=== PATIENT | male | born 1995 | race Caucasian/White ===

== ENCOUNTER 2017-10-24 01:50 | Emergency (ER) | payer BC, OTHER ==
[~2017-10-24] VITALS: Ht 182.9 cm; Wt 68.0 kg
[~2017-10-24 01:50] MED LIST: ANTIDEPRESSANT
[2017-10-24 02:15] LABS: BASOPHILS # (AUTO) 0.1 10^3/uL (0.0-0.1); BASOPHILS % (AUTO) 1 % (0-10); EOSINOPHILS # (AUTO) 0.1 10^3/uL (0.0-0.3); EOSINOPHILS % (AUTO) 2 % (0-10); LYMPHOCYTES # (AUTO) 3.2 X 10^3 (1.0-4.0); LYMPHOCYTES % (AUTO) 43 % (12-44); MEAN CORPUSCULAR HEMOGLOBIN 30 PG (25-34); MEAN CORPUSCULAR HGB CONC 35 G/DL (32-36); MEAN CORPUSCULAR VOLUME 85 FL (80-99); MONOCYTES # (AUTO) 0.5 X 10^3 (0.0-1.0); MONOCYTES % (AUTO) 7 % (0-12); NEUTROPHILS # (AUTO) 3.5 X 10^3 (1.8-7.8); NEUTROPHILS % (AUTO) 47 % (42-75); PLATELET COUNT 269 10^3/uL (130-400); RED BLOOD COUNT 4.85 10^6/uL (4.35-5.85); RED CELL DISTRIBUTION WIDTH 12.1 % (10.0-14.5); WHITE BLOOD COUNT 7.3 10^3/uL (4.3-11.0)
[2017-10-24 02:37] LABS: BILIRUBIN,URINE NEGATIVE (NEGATIVE); KETONES,URINE NEGATIVE (NEGATIVE); LEUKOCYTE ESTERASE ,URINE NEGATIVE (NEGATIVE); NITRITE,URINE NEGATIVE (NEGATIVE); PH,URINE 7 (5-9); PROTEIN,URINE NEGATIVE (NEGATIVE); UROBILINOGEN,URINE NORMAL (NORMAL)
[2017-10-24 02:43] LABS: ALANINE AMINOTRANSFERASE 17 U/L (0-55); ALBUMIN 4.4 GM/DL (3.2-4.5); ALCOHOL 254 MG/DL (<10); ANION GAP 16 MMOL/L (5-14); ASPARTATE AMINO TRANSFERASE 20 U/L (5-34); BILIRUBIN,TOTAL 0.3 MG/DL (0.1-1.0); BLOOD UREA NITROGEN 11 MG/DL (7-18); BUN/CREATININE RATIO 11; CALCIUM 9.7 MG/DL (8.5-10.1); CARBON DIOXIDE 17 MMOL/L (21-32); CHLORIDE 110 MMOL/L (98-107); CREATININE SERUM 1.03 MG/DL (0.60-1.30); GFR ESTIMATED > 60; GLUCOSE 122 MG/DL (70-105); POTASSIUM 3.6 MMOL/L (3.6-5.0); SALICYLATE < 5.0 MG/DL (5.0-20.0); SODIUM 143 MMOL/L (135-145); TOTAL PROTEIN 7.7 GM/DL (6.4-8.2)
[2017-10-24 02:45] LABS: ACETAMINOPHEN < 10 UG/ML (10-30)
--- NOTE | 2017-10-24 03:27 | ED Psychosocial ---
General Chief Complaint: Substance Abuse Stated Complaint: ETOH Nursing Triage Note: PT TO ED 8 PER EMS FOR C/O POSS OD ET ETOH INTOXICATION. PT SCREAMING, CRYING, HYSTERICAL AT THIS TIME. PT DEMANDING THAT IV BE PULLED OUT AND WANTS REASSURANCE HIS PARENTS ARE OK. Source: patient, EMS Exam Limitations: intoxication History of Present Illness Time seen by provider: 01:55 Initial Comments Here by EMS with report of alcohol intoxication. Apparently somebody called because he is being irrational and crying. EMS reports that he was asking about his parents and being irrational and crying. No report of injury. 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 On arrival, he is irritable but calmed with verbal measures. Admits to drinking alcohol but otherwise doesn't admit to much else. Mother arrives much later and does report that he left a goodbye note on Facebook which the patient doesn' t remember. Denies suicidal or homicidal ideations. Timing/Duration: this evening Severity: moderate Associated Symptoms: anxiety, ingestion (alcohol) Allergies and Home Medications Allergies Coded Allergies: amoxicillin (Unverified Allergy, Unknown, 10/05/17) sulfamethoxazole (Unverified Allergy, Unknown, 10/05/17) trimethoprim (Unverified Allergy, Unknown, 10/05/17) Home Medications [Antidepressant] , (Reported) Constitutional: see HPI, No chills, No fever EENTM: no symptoms reported Respiratory: no symptoms reported Cardiovascular: no symptoms reported Gastrointestinal: no symptoms reported Genitourinary: no symptoms reported Musculoskeletal: no symptoms reported Skin: see HPI, other (multiple old superficial lacerations to the arms and legs.) Psychiatric/Neurological: See HPI, Anxiety Past Lriasla-Ydmizh-Cbvntm Hx Patient Social History Alcohol Use: Denies Use Recreational Drug Use: No Smoking Status: Never a Smoker 2nd Hand Smoke Exposure: No Recent Foreign Travel: No Contact w/Someone Who Travel: No Recent Infectious Disease Expo: No Recent Hopitalizations: No Physical Abuse: No Sexual Abuse: No Mistreated: No Fear: No Immunizations Up To Date Tetanus Booster (TDap): Less than 5yrs Seasonal Allergies Seasonal Allergies: No Surgeries History of Surgeries: Yes (ORAL) Respiratory History of Respiratory Disorde: No Cardiovascular History of Cardiac Disorders: No Neurological History of Neurological Disord: No Reproductive System Hx Reproductive Disorders: No Genitourinary History of Genitourinary Disor: No Gastrointestinal History of Gastrointestinal Di: No Musculoskeletal History of Musculoskeletal Dis: No Endocrine History of Endocrine Disorders: No HEENT History of HEENT Disorders: No Cancer History of Cancer: No Psychosocial History of Psychiatric Problem: Yes Behavioral Health Disorders: Suicide Attempts Suicide Risk Score: 0 Reviewed Nursing Assessment Reviewed/Agree w Nursing PMH: Yes Physical Exam Vital Signs Vital Sign - Last 12Hours 10/24/17 01:50 Temp 96.6 Pulse 144 Resp 24 B/P (MAP) 123/100 (108) Pulse Ox 100 O2 Delivery Room Air Capillary Refill : Less Than 3 Seconds General Appearance: WD/WN, no apparent distress HEENT: PERRL/EOMI, pharynx normal Neck: full range of motion, supple Respiratory: lungs clear, normal breath sounds Cardiovascular: regular rate, rhythm, no murmur Peripheral Pulses: 2+ Dorsalis Pedis (R), 2+ Left Dors-Pedis (L), 2+ Radial Pulses (R), 2+ Radial Pulses (L) Gastrointestinal: non tender, soft Extremities: non-tender, normal inspection Neurologic/Psychiatric: alert, other (slurred speech) Appearance/Memory: no memory impairment, disheveled Behavior/Eye Contact: uncooperative, other (crying) Thoughts/Hallucinations: no apparent hallucination Skin: normal color, warm/dry, other (multiple superficial lacerations on the upper and lower extremities in various stages of healing but all appear old and certainly no new actively bleeding wounds.) Laceration Repair : Suture Size: 4-0 Progress/Results/Core Measures Results/Orders Lab Results Laboratory Tests Test 10/24/17 01:59 10/24/17 02:29 Range/Units White Blood Count 7.3 4.3-11.0 10^3/uL Red Blood Count 4.85 4.35-5.85 10^6/uL Hemoglobin 14.4 13.3-17.7 G/DL Hematocrit 41 40-54 % Mean Corpuscular Volume 85 80-99 FL Mean Corpuscular Hemoglobin 30 25-34 PG Mean Corpuscular Hemoglobin Concent 35 32-36 G/DL Red Cell Distribution Width 12.1 10.0-14.5 % Platelet Count 269 130-400 10^3/uL Mean Platelet Volume 10.0 7.4-10.4 FL Neutrophils (%) (Auto) 47 42-75 % Lymphocytes (%) (Auto) 43 12-44 % Monocytes (%) (Auto) 7 0-12 % Eosinophils (%) (Auto) 2 0-10 % Basophils (%) (Auto) 1 0-10 % Neutrophils # (Auto) 3.5 1.8-7.8 X 10^3 Lymphocytes # (Auto) 3.2 1.0-4.0 X 10^3 Monocytes # (Auto) 0.5 0.0-1.0 X 10^3 Eosinophils # (Auto) 0.1 0.0-0.3 10^3/uL Basophils # (Auto) 0.1 0.0-0.1 10^3/uL Sodium Level 143 135-145 MMOL/L Potassium Level 3.6 3.6-5.0 MMOL/L Chloride Level 110 H 98-107 MMOL/L Carbon Dioxide Level 17 L 21-32 MMOL/L Anion Gap 16 H 5-14 MMOL/L Blood Urea Nitrogen 11 7-18 MG/DL Creatinine 1.03 0.60-1.30 MG/DL Estimat Glomerular Filtration Rate > 60 BUN/Creatinine Ratio 11 Glucose Level 122 H 70-105 MG/DL Calcium Level 9.7 8.5-10.1 MG/DL Total Bilirubin 0.3 0.1-1.0 MG/DL Aspartate Amino Transf (AST/SGOT) 20 5-34 U/L Alanine Aminotransferase (ALT/SGPT) 17 0-55 U/L Alkaline Phosphatase 97 40-136 U/L Total Protein 7.7 6.4-8.2 GM/DL Albumin 4.4 3.2-4.5 GM/DL Salicylates Level < 5.0 L 5.0-20.0 MG/DL Acetaminophen Level < 10 L 10-30 UG/ML Serum Alcohol 254 H <10 MG/DL Urine Color STRAW Urine Clarity CLEAR Urine pH 7 5-9 Urine Specific [place] 1.010 L 1.016-1.022 Urine Protein NEGATIVE NEGATIVE Urine Glucose (UA) NEGATIVE NEGATIVE Urine Ketones NEGATIVE NEGATIVE Urine Nitrite NEGATIVE NEGATIVE Urine Bilirubin NEGATIVE NEGATIVE Urine Urobilinogen NORMAL NORMAL MG/DL Urine Leukocyte Esterase NEGATIVE NEGATIVE Urine RBC (Auto) NEGATIVE NEGATIVE Urine RBC NONE /HPF Urine WBC NONE /HPF Urine Squamous Epithelial Cells NONE /HPF Urine Crystals NONE /LPF Urine Bacteria NEGATIVE /HPF Urine Casts NONE /LPF Urine Mucus NEGATIVE /LPF Urine Culture Indicated NO Urine Opiates Screen NEGATIVE NEGATIVE Urine Oxycodone Screen NEGATIVE NEGATIVE Urine Methadone Screen NEGATIVE NEGATIVE Urine Propoxyphene Screen NEGATIVE NEGATIVE Urine Barbiturates Screen NEGATIVE NEGATIVE Ur Tricyclic Antidepressants Screen NEGATIVE NEGATIVE Urine Phencyclidine Screen NEGATIVE NEGATIVE Urine Amphetamines Screen NEGATIVE NEGATIVE Urine Methamphetamines Screen NEGATIVE NEGATIVE Urine Benzodiazepines Screen NEGATIVE NEGATIVE Urine Cocaine Screen NEGATIVE NEGATIVE Urine Cannabinoids Screen NEGATIVE NEGATIVE My Orders Orders - KAMALJIT VALENCIA MD Ua Culture If Indicated (10/24/17:57) Cbc With Automated Diff (10/24/17:57) Comprehensive Metabolic Panel (10/24/17:57) Alcohol (10/24/17:57) Drug Screen Stat (Urine) (10/24/17) Acetaminophen (10/24/17:57) Salicylate (10/24/17:57) Ekg Tracing (10/24/17:57) Monitor-Rhythm Ecg Trace Only (10/24/17:57) Vital Signs/I&O Vital Sign - Last 12Hours 10/24/17 01:50 Temp 96.6 Pulse 144 Resp 24 B/P (MAP) 123/100 (108) Pulse Ox 100 O2 Delivery Room Air Blood Pressure Mean: 108 Progress Note : Progress Note Seen and evaluated. IV, labs, EKG, normal saline 1 L bolus. IV and saline initiated by EMS. Patient is irrational and uncooperative at times but redirectable with verbal. Monitor patient. Patient did get Jhaveri catheter and O2 when he was sleeping very deeply. Labs and UA are reviewed. Patient does show alcohol intoxication but no other findings. 0315: Parents have arrived. Did discuss with the parents and the patient his current history and the alcohol intoxication. Mother filled me in on the story about [employer]. Patient denies SI or HI currently. They are willing to take him home and monitor him at home as the patient would prefer that. They're going to talk and we will rediscuss after that. 0430: He is doing better. Parents are comfortable with taking him home at this point. They shut off his monitor because it was dinging and so vital signs were lost. Aside from tachycardia, vitals were in reasonable range. Discharged home with return precautions. Patient and family verbalize understanding instructions and agreement with plan. ECG Initial ECG Impression Date: Oct 24, 2017 Initial ECG Impression Time: 02:04 Initial ECG Rate: 112 Initial ECG Rhythm: S.Tach Comment Sinus tachycardia with normal axis. No evidence of ST elevation IN. No previous available for comparison. Interpreted by me. Departure Impression Impression: Primary Impression: Alcohol intoxication Qualified Codes: F10.929 - Alcohol use, unspecified with intoxication, unspecified Additional Impressions: Anxiety disorder Qualified Codes: F41.9 - Anxiety disorder, unspecified Depression Qualified Codes: F32.9 - Major depressive disorder, single episode, unspecified Disposition: 01 HOME, SELF-CARE Condition: Stable Departure-Patient Inst. Referrals: [facility] (PCP/Family) Primary Care Physician Patient Instructions: ALCOHOL AND SUBSTANCE ABUSE Add. Discharge Instructions: All discharge instructions reviewed with patient and/or family. Voiced understanding. It is very important that he follow-up with your mental health provider on Wednesday for recheck and further evaluation. You may also seek treatment at local facility or facility near your hometown. Return for worsening, fever, vomiting, weakness, breathing problems or other concerns as needed. Copy Copies To 1: MILEY DUNN MD, TIMOTHY D MD Oct 24, 2017 03:27
[2017-10-24 04:46] VITALS: BP 126/80
== END 2017-10-24 04:46 | disposition home or self-care (01) ==
LOC: EDUNIT# 01:50 → ER 01:52
DX: F10.129 Alcohol abuse with intoxication, unspecified (principal); F41.9 Anxiety disorder, unspecified; F32.9 Major depressive disorder, single episode, unspecified; Z91.5 Personal history of self-harm
CPT/HCPCS: 36415; 80053; 80306; 80320; 80329; 81000; 85025; 93005; 93041